=== PATIENT | female | born 1980 | race Caucasian/White ===

== ENCOUNTER 2025-04-03 07:55 | Inpatient (IN) | payer OTHER ==
[~2025-04-03] VITALS: Ht 165.1 cm; Wt 77.7 kg
[~2025-04-03 07:55] MED LIST: CALAMINE120 ML PO; HYDROCORTISONE30 G2 T; PREDNICOT20 MG PO
[2025-04-03 08:16] VITALS: BP 137/89
[2025-04-03] MEDS ORDERED: Ondansetron Hydrochloride 4 MG/2 ML VIAL IV ONE (10:00)
[2025-04-03] MEDS ORDERED: SODIUM CHLORIDE 0.9% 10 ML VIAL IV ONE (10:00)
[2025-04-03 10:09] LABS: BASO # 0.0 10*3/uL (0.0-0.1); BASO % 0.4 % (0.0-1.0); EOS # 0.2 10*3/uL (0.0-0.4); EOS % 1.5 % (1.0-4.0); MEAN CELL VOLUME 87.3 fl (81.0-99.0); MEAN CORPUSCULAR HGB 28.9 pg (27.0-31.0); MEAN PLATELET VOLUME 9.3 fl (9.6-12.3); MONO # 0.8 10*3/uL (0.1-1.0); MONO % 7.6 % (3.0-9.0); NEUT # 6.9 10*3/uL (2.3-7.9); NEUT % 70.5 % (47.0-73.0); NUCLEATED RED BLOOD CELL 0.0 % (0.0-0.0); NUCLEATED RED BLOOD CELL 0.0 10*3/uL (0.0-0.0); PLATELET COUNT AUTOMATED 279 10*3/uL (130-400); RED CELL DISTRI WIDTH 12.7 % (0-14.5)
[2025-04-03] MEDS ORDERED: SODIUM CHLORIDE 0.9% 1,000 ML IV ONE ×2 (10:10→13:25)
[2025-04-03 10:45] LABS: BUN 8 mg/dl (9-23); SGPT/ALT 14 U/L (5-49)
[2025-04-03 11:18] LABS: BILIRUBIN Negative (Negative); BLOOD Negative (Negative); CLARITY Clear (Clear); COLOR Yellow (Yellow); KETONE Trace (Negative); LEUKO ESTERASE Trace (Negative); NITRITE Negative (Negative); PH 6.0 (4.5-8.0); SPECIFIC GRAVITY 1.025 (1.001-1.030); UROBILINOGEN 1.0 E.U./dl (0.0-1.0)
[2025-04-03 11:57] LABS: BACTERIA TRACE; MUCOUS 2+
[2025-04-03] MEDS ORDERED: Ondansetron Hydrochloride 4 MG/2 ML VIAL IV PRN (13:20)
[2025-04-03 17:40] VITALS: BP 103/58
[2025-04-03 17:50] VITALS: BP 119/59
[2025-04-03 20:00] VITALS: BP 120/64
[2025-04-04] VITALS (8 sets, daily range): BP systolic 108–129; BP diastolic 55–68
[2025-04-04 06:27] LABS: BASO # 0.1 10*3/uL (0.0-0.1); BASO % 0.6 % (0.0-1.0); EOS # 0.2 10*3/uL (0.0-0.4); EOS % 2.8 % (1.0-4.0); MEAN CELL VOLUME 87.9 fl (81.0-99.0); MEAN CORPUSCULAR HGB 28.4 pg (27.0-31.0); MEAN PLATELET VOLUME 9.1 fl (9.6-12.3); MONO # 0.5 10*3/uL (0.1-1.0); MONO % 6.6 % (3.0-9.0); NEUT # 4.8 10*3/uL (2.3-7.9); NEUT % 60.8 % (47.0-73.0); NUCLEATED RED BLOOD CELL 0.0 % (0.0-0.0); NUCLEATED RED BLOOD CELL 0.0 10*3/uL (0.0-0.0); PLATELET COUNT AUTOMATED 233 10*3/uL (130-400); RED CELL DISTRI WIDTH 12.8 % (0-14.5)
[2025-04-04 06:53] LABS: FREE T4 1.81 ng/dl (0.89-1.76); LDL CHOLESTEROL 92 mg/dL (9-159)
[2025-04-04 06:54] LABS: BUN < 5 mg/dl (9-23)
[2025-04-04] MEDS ORDERED: ACETAMINOPHEN 100 ML IV ONE (08:01)
[2025-04-04] MEDS ORDERED: Lactated Ringer's Solution 1,000 ML IV ONE (08:01)
[2025-04-04] MEDS ORDERED: Ondansetron4 MG PO (12:12)
[2025-04-04] MEDS ORDERED: PERCOCET 5-3251 EACH PO (12:12)
[2025-04-04] MEDS ORDERED: Midazolam Hydrochloride 2 MG/2 ML VIAL IV ONE (12:33)
[2025-04-04] MEDS ORDERED: SUGAMMADEX SODIUM 200 MG/2 ML VIAL IV ONE (12:33)
[2025-04-04] MEDS ORDERED: Lidocaine Hydrochloride 5 ML VIAL IV ONE (12:33)
[2025-04-04] MEDS ORDERED: PROPOFOL 200 MG/20 ML VIAL IV ONE (12:33)
[2025-04-04] MEDS ORDERED: Dexamethasone Sodium Phospha 4 MG/ML VIAL IV ONE (12:33)
[2025-04-04] MEDS ORDERED: SEVOFLURANE 250 ML BOT INH ONE (12:33)
[2025-04-04] MEDS ORDERED: Ondansetron Hydrochloride 4 MG/2 ML VIAL IV ONE (12:33)
[2025-04-04] MEDS ORDERED: ROCURONIUM BROMIDE 50 MG/5 ML SYRINGE IV ONE (12:33)
== END 2025-04-04 14:00 | disposition home or self-care (01) | DRG 418 ==
LOC: ED 07:55 → 5E 13:01 → EDHOLD 13:01 → 5E 17:22
PROVIDERS: Emergency Medicine; Student in an Organized Health Care Education/Training Program; ADMIT Internal Medicine; ATTEND Internal Medicine
PROC: 0FT44ZZ Resection of Gallbladder, Percutaneous Endoscopic Approach (ICD-10-PCS; principal; 2025-04-04)
DX: K80.00 Calculus of gallbladder with acute cholecystitis without obstruction (principal); E44.1 Mild protein-calorie malnutrition; K59.00 Constipation, unspecified; R73.9 Hyperglycemia, unspecified; R00.0 Tachycardia, unspecified; Z82.49 Family history of ischemic heart disease and other diseases of the circulatory system; Z88.5 Allergy status to narcotic agent